=== PATIENT | female | born 1995 | race Hispanic/Latino ===

== ENCOUNTER 2019-07-20 12:53 | Emergency (ER) | payer OTHER ==
[2019-07-20] MEDS ORDERED: Adacel (T-DAP) 0.5 ML SYRINGE ONE (13:03)
[2019-07-20] MEDS ORDERED: Bacitracin 1 PK ONE (13:08)
== END 2019-07-20 13:19 | disposition home or self-care (01) ==
LOC: NAV ERS 12:53
DX: S61.451A Open bite of right hand, initial encounter (principal); S61.431A Puncture wound without foreign body of right hand, initial encounter; W54.0XXA Bitten by dog, initial encounter
CPT/HCPCS: 90471; 90715